=== PATIENT | female | born 1955 | race African-American/Black ===

== ENCOUNTER → 2017-05-13 12:35 | Outpatient (CLI) | payer MEDICAID, SELFPAY ==
[2017-05-13 13:48] LABS: Alanine Aminotransferase 16 U/L (12-78); Albumin Level 3.4 gm/dL (3.4-5.0); Albumin/Globulin Ratio 0.8 (1.1-1.8); Alkaline Phosphatase 110 U/L (46-116); Anion Gap 10.8 mEq/L (5-15); Aspartate Amino Transferase 11 U/L (15-37); Bilirubin,Total 0.4 mg/dL (0.2-1.0); Blood Urea Nitrogen 10 mg/dL (7-18); Calcium 8.7 mg/dL (8.5-10.1); Carbon Dioxide 31 mmol/L (21.0-32.0); Chloride 103 mmol/L (98-107); Chol/HDL Ratio 3.9 (1-3.5); Cholesterol 193 mg/dL (140-200); Creatinine,Serum 0.85 mg/dL (0.55-1.02); Estimated Glomerular Filt Rate > 60 ml/min (>60); GFR (African American) > 60 ML/MIN (>60); Globulin 4.2 gm/dl (1.3-3.2); Glucose 97 mg/dL (74-106); HDL Cholesterol 50 mg/dL (29-89); LDL Cholesterol 125 mg/dL (0-130); Potassium 3.8 mmoL/L (3.5-5.1); Sodium 141 mmol/L (136-145); Total Protein,Serum 7.6 gm/dL (6.4-8.2); Triglycerides 91 mg/dL (30-200); VLDL Cholesterol 18 mg/dL (0-40)
== END ==
PROVIDERS: PCP Internal Medicine Adolescent Medicine; Visit Provider Internal Medicine Adolescent Medicine
DX: E78.5 Hyperlipidemia, unspecified (principal)
CPT/HCPCS: 36415; 80053; 80061

== ENCOUNTER → 2017-09-26 09:55 | Outpatient (CLI) | payer MEDICAID, SELFPAY ==
[2017-09-26 11:29] LABS: Basophils % 0.6 % (0.1-2.0); Eosinophils # 0.2 K/mm3 (0.0-0.4); Eosinophils % 2.7 % (0.1-12.0); Hematocrit 37.1 % (37.0-47.0); Hemoglobin 11.5 g/dL (12.2-16.2); Lymphocytes # 2.1 K/mm3 (0.7-4.5); Mean Corpuscular Volume 90.2 fl (81-99); Mean Platelet Volume 7.6 fl (7.4-10.4); Monocytes # 0.3 K/mm3 (0.1-1.0); Monocytes % 3.6 % (1.7-9.3); Neutrophils # 4.6 K/mm3 (1.8-7.8); Neutrophils % 64.1 % (37.0-80.0); Platelet Count 395 K/mm3 (142-424); Red Blood Count 4.11 M/mm3 (4.20-5.40); Red Cell Distribution Width 12.9 % (11.5-17.5); White Blood Count 7.2 K/mm3 (4.8-10.8)
[2017-09-26 12:23] LABS: Alanine Aminotransferase 18 U/L (12-78); Albumin Level 3.2 gm/dL (3.4-5.0); Albumin/Globulin Ratio 0.7 (1.1-1.8); Alkaline Phosphatase 112 U/L (46-116); Anion Gap 8.6 mEq/L (5-15); Aspartate Amino Transferase 14 U/L (15-37); Bilirubin,Total 0.4 mg/dL (0.2-1.0); Blood Urea Nitrogen 11 mg/dL (7-18); Calcium 8.7 mg/dL (8.5-10.1); Carbon Dioxide 30 mmol/L (21.0-32.0); Chloride 106 mmol/L (98-107); Cholesterol 206 mg/dL (140-200); Creatinine,Serum 0.67 mg/dL (0.55-1.02); Estimated Glomerular Filt Rate 89 ml/min (>60); GFR (African American) 108 ML/MIN (>60); Globulin 4.3 gm/dl (1.3-3.2); Glucose 90 mg/dL (74-106); HDL Cholesterol 52 mg/dL (29-89); LDL Cholesterol 137 mg/dL (0-130); Potassium 3.6 mmoL/L (3.5-5.1); Sodium 141 mmol/L (136-145); Total Protein,Serum 7.5 gm/dL (6.4-8.2); Triglycerides 84 mg/dL (30-200); VLDL Cholesterol 17 mg/dL (0-40)
== END ==
PROVIDERS: PCP Nurse Practitioner Family; Referring Provider Nurse Practitioner Family; Visit Provider Nurse Practitioner Family
DX: Z00.00 Encounter for general adult medical examination without abnormal findings (principal); E78.5 Hyperlipidemia, unspecified; D72.829 Elevated white blood cell count, unspecified
CPT/HCPCS: 36415; 80053; 80061; 85025

== ENCOUNTER → 2018-01-16 10:14 | Outpatient (CLI) | payer MEDICAID, SELFPAY ==
[2018-01-16 10:36] LABS: Basophils % 0.4 % (0.1-2.0); Eosinophils # 0.3 K/mm3 (0.0-0.4); Eosinophils % 3.3 % (0.1-12.0); Hematocrit 38.1 % (37.0-47.0); Hemoglobin 12.1 g/dL (12.2-16.2); Lymphocytes # 2.7 K/mm3 (0.7-4.5); Lymphocytes % 30.7 K/mm3 (10-50); Mean Corpuscular HGB Conc 31.8 g/dL (31.8-35.4); Mean Corpuscular Hemoglobin 28.9 pg (27.0-31.2); Mean Platelet Volume 7.6 fl (7.4-10.4); Monocytes # 0.3 K/mm3 (0.1-1.0); Monocytes % 3.4 % (1.7-9.3); Neutrophils # 5.5 K/mm3 (1.8-7.8); Neutrophils % 62.1 % (37.0-80.0); Platelet Count 405 K/mm3 (142-424); Red Blood Count 4.18 M/mm3 (4.20-5.40); Red Cell Distribution Width 13.4 % (11.5-17.5); White Blood Count 8.9 K/mm3 (4.8-10.8)
[2018-01-16 12:16] LABS: Alanine Aminotransferase 23 U/L (12-78); Albumin Level 3.5 gm/dL (3.4-5.0); Albumin/Globulin Ratio 0.8 (1.1-1.8); Alkaline Phosphatase 120 U/L (46-116); Aspartate Amino Transferase 11 U/L (15-37); Bilirubin,Total 0.4 mg/dL (0.2-1.0); Blood Urea Nitrogen 9 mg/dL (7-18); Calcium 8.9 mg/dL (8.5-10.1); Carbon Dioxide 34 mmol/L (21.0-32.0); Chloride 104 mmol/L (98-107); Chol/HDL Ratio 3.9 (1-3.5); Cholesterol 236 mg/dL (140-200); Estimated Glomerular Filt Rate 85 ml/min (>60); GFR (African American) 103 ML/MIN (>60); Globulin 4.5 gm/dl (1.3-3.2); Glucose 94 mg/dL (74-106); HDL Cholesterol 60 mg/dL (29-89); LDL Cholesterol 155 mg/dL (0-130); Sodium 142 mmol/L (136-145); Triglycerides 104 mg/dL (30-200); VLDL Cholesterol 21 mg/dL (0-40)
[2018-01-20 05:20] LABS: Vitamin B12 525 pg/mL (232-1245)
== END ==
PROVIDERS: PCP Nurse Practitioner Family; Visit Provider Nurse Practitioner Family
DX: Z00.00 Encounter for general adult medical examination without abnormal findings (principal); E78.5 Hyperlipidemia, unspecified; E53.8 Deficiency of other specified B group vitamins
CPT/HCPCS: 36415; 80053; 80061; 82607; 85025

== ENCOUNTER 2018-03-25 15:00 | Outpatient (RCR) | payer MEDICAID, SELFPAY ==
--- NOTE | 2018-03-18 09:51 | HMH.PTOPEV ---
PT Outpatient Evaluation Rehab PT Outpatient Evaluation Start: 03/18/18 09:41 Freq: Status: Active Protocol: Document 03/18/18 09:41 AMBERLYLORNA (Rec: 03/18/18 09:51 LIANALATASHA [id number]) Electronically Signed By Deni Chu, PT 03/18/18 09:41 Outpatient Therapy Subjective History Subjective History This is the initial OP PT evaluation for Alessandra Santana. Pt is a 62 y/o female referred to PT for c/o L knee pain. Pt reports she fell 2 years ago onto L knee cap and cracked her knee . Pt rpeorts she has had pain in it ever since. Pt reports she has difficulty w/ transition from sit to stand. Pt also feels like her knee catches and gives out Chief Complaint Pain Catches/Locks Gives out/Unstable Symptom Type Ache Throb Sharp Dull Symptoms Relieved By Rest/Positioning Prescription Meds Symptoms Aggravated By Prone Current Functional Limitations Housework Recreation Activity Walking Stairs Symptom Description Intermittent Level of pain today (0-10) 0 Pain scale - at its best (0-10) 0 Pain scale - at its worst (0-10) 9 Hip/Knee Eval Gait Observation General Gait Pattern Observation Antalgic Gait Wide Based Gait Shuffling Step Assistive Device Assistive Devices Straight Cane MMT bilateral Hip Strength Reason Not Measured WFL Knee Extension Strength Grade 4 Good Knee Flexion Strength Grade 4 Good ROM Knee ROM Reason Not Measured Within Functional Limits Special Tests Knee Apley Compression Test Negative Left Negative Right Knee Medial-Lateral Grind Test Negative Left Negative Right Knee Valgus Stress Test Negative Left Negative Right Knee Varus Stress Test Negative Left Negative Right Knee Trevon Test Negative Left Negative Right Patellar Compression Test Positive Left Outpatient Therapy Assessment Impairments Problems/Impairmments Palpation Te
== END 2018-03-25 15:05 | disposition home or self-care (01) ==
LOC: PT 15:00
PROVIDERS: Visit Provider Nurse Practitioner Family
DX: M25.562 Pain in left knee (principal)
CPT/HCPCS: 97033; 97110; 97163

== ENCOUNTER → 2018-08-11 09:11 | Outpatient (CLI) | payer MEDICAID, SELFPAY ==
[2018-08-11 10:18] LABS: Basophils % 0.2 % (0.1-2.0); Eosinophils # 0.2 K/mm3 (0.0-0.4); Eosinophils % 1.8 % (0.1-12.0); Hematocrit 36.3 % (37.0-47.0); Lymphocytes # 2.5 K/mm3 (0.7-4.5); Lymphocytes % 28.4 % (10-50); Mean Corpuscular HGB Conc 33.2 g/dL (31.8-35.4); Mean Corpuscular Hemoglobin 28.9 pg (27.0-31.2); Mean Corpuscular Volume 87.1 fl (81-99); Mean Platelet Volume 7.3 fl (7.4-10.4); Monocytes # 0.3 K/mm3 (0.1-1.0); Monocytes % 3.2 % (1.7-9.3); Neutrophils # 5.8 K/mm3 (1.8-7.8); Neutrophils % 66.3 % (37.0-80.0); Platelet Count 381 K/mm3 (142-424); Red Blood Count 4.17 M/mm3 (4.20-5.40); Red Cell Distribution Width 13.2 % (11.5-17.5); White Blood Count 8.8 K/mm3 (4.8-10.8)
[2018-08-11 10:39] LABS: Alanine Aminotransferase 18 U/L (12-78); Albumin Level 3.6 gm/dL (3.4-5.0); Albumin/Globulin Ratio 0.8 (1.1-1.8); Alkaline Phosphatase 111 U/L (46-116); Anion Gap 13.9 mEq/L (5-15); Aspartate Amino Transferase 12 U/L (15-37); Bilirubin,Total 0.5 mg/dL (0.2-1.0); Blood Urea Nitrogen 11 mg/dL (7-18); Calcium 8.8 mg/dL (8.5-10.1); Carbon Dioxide 28 mmol/L (21.0-32.0); Chloride 104 mmol/L (98-107); Chol/HDL Ratio 3.7 (1-3.5); Cholesterol 224 mg/dL (140-200); Creatinine,Serum 0.77 mg/dL (0.55-1.02); Estimated Glomerular Filt Rate 76 ml/min (>60); GFR (African American) 92 ML/MIN (>60); Globulin 4.5 gm/dl (1.3-3.2); Glucose 94 mg/dL (74-106); HDL Cholesterol 61 mg/dL (29-89); LDL Cholesterol 146 mg/dL (0-130); Potassium 3.9 mmoL/L (3.5-5.1); Sodium 142 mmol/L (136-145); Thyroid Stimulating Hormone 2.05 uIU/ml (0.358-3.740); Total Protein,Serum 8.1 gm/dL (6.4-8.2); Triglycerides 85 mg/dL (30-200); VLDL Cholesterol 17 mg/dL (0-40)
[2018-08-11 15:10] LABS: Hemoglobin A1C 5.9 % (0.0-7.0)
[2018-08-12 11:35] LABS: Ferritin 113 ng/mL (8-388)
[2018-08-13 08:32] LABS: Iron 58 ug/dL (27-139); Iron Saturation 22 % (15-55); UIBC 209 ug/dL (118-369)
[2018-08-13 14:28] LABS: Folate 4.4 ng/mL (>3.0)
== END ==
PROVIDERS: Visit Provider Nurse Practitioner Family
DX: E78.5 Hyperlipidemia, unspecified (principal); E66.01 Morbid (severe) obesity due to excess calories; K59.00 Constipation, unspecified; R60.9 Edema, unspecified; M12.9 Arthropathy, unspecified; I87.2 Venous insufficiency (chronic) (peripheral)
CPT/HCPCS: 36415; 80053; 80061; 82728; 82746; 83036; 83540; 83550; 84443; 85025

== ENCOUNTER 2018-09-04 11:00 | Outpatient (RCR) | payer MEDICAID, SELFPAY ==
--- NOTE | 2018-08-14 09:38 | HMH.PTOPWND ---
Rehab Outpt Wound Evaluation Rehab OP Wound Evaluation Start: 08/14/18 09:15 Freq: Status: Active Protocol: Document 08/14/18 09:31 DMITRY (Rec: 08/14/18 09:37 PHORNE [id number]) Electronically Signed By Nishant Crain, PT 08/14/18 09:31 Subjective/History History History Pt is 63 yoaaf who presents with c/o left knee pain and benedicto LE swelling x > 3 yrs. She reports having a ground level fall in the mud, years ago which precipitated her edema. She reports pain in the left knee is worse with walking and transfers. She also reports tenderness to palpation throughout benedicto lower legs. She reports a hx of HL, OA, questionable prior patella fx, and umbilical hernia repair. Subjective Subjective Pt reports pain 3/10 in left knee at rest, 4/10 with ambulation. Lymphedema Eval Classification of Lymphedema Secondary Lymphedema Yes Stemmer's sign Stemmer's Sign no Stage of Lymphedema Lymphedema stages Stage I (Pitting edema, reduces w/ elevation, no fibrosis) Skin Changes Dry Skin Yes Redness Yes Pain Scale Pain Scale (0-10) 3 Affected Extremities Areas Affected by Lymphedema/Edema Right Lower Extremity Left Lower Extremity Manual Lymphatic Drainage Treatment Area MLD Treatment Area Right Lower Extremity Left Lower Extremity Wound Problems/Impairments Impairments Problems/Impairmments Palpation Tenderness Impaired Strength Impaired Endurance Impaired Transfers Impaired Gait Pattern Impaired Walking Increased Edema Lymphedema Present Subjective C/O Pain Impaired Self Care/Self Management Prognosis Rehab Potential Good Clinical Impression Consistent with Diagnosis Yes Short Term Goals Number of Weeks 4 Decreased Palpation Tenderness Yes: to min Decrease Subjective C/O Pain Yes: 2/10 Patient to Understand Lymphedema Yes Treatment and Exercis
== END 2018-09-04 11:15 | disposition home or self-care (01) ==
LOC: PT 11:00
PROVIDERS: Visit Provider Nurse Practitioner Family
DX: I87.2 Venous insufficiency (chronic) (peripheral) (principal); R60.0 Localized edema
CPT/HCPCS: 97140; 97162

== ENCOUNTER → 2018-10-01 09:06 | Outpatient (CLI) | payer MEDICAID, SELFPAY ==
--- NOTE | 2018-10-01 09:12 | XR_ITS ---
XR knee LT 4V HISTORY: Left knee pain ITS.REASON: 4 views weight bearing ORDERING PHYSICIAN: Nelda Campbell MD PATIENT AGE: 63 years COMPARISON: 10/20/2016 FINDINGS: There are severe osteoarthritic changes of the left knee involving all 3 compartments probably not significantly changed considering difference in technique. No fracture or dislocation. IMPRESSION: Severe osteoarthritis of left knee
== END ==
PROVIDERS: PCP Internal Medicine Adolescent Medicine; Visit Provider Orthopaedic Surgery
DX: M25.562 Pain in left knee (principal)
CPT/HCPCS: 73564

== ENCOUNTER → 2019-01-16 09:07 | Outpatient (CLI) | payer MEDICAID, SELFPAY ==
[2019-01-16 09:33] LABS: Basophils % 0.3 % (0.1-2.0); Eosinophils # 0.2 K/mm3 (0.0-0.4); Eosinophils % 2.3 % (0.1-12.0); Hemoglobin 12.1 g/dL (12.2-16.2); Lymphocytes # 2.5 K/mm3 (0.7-4.5); Lymphocytes % 25.6 % (10-50); Mean Corpuscular HGB Conc 31.9 g/dL (31.8-35.4); Mean Corpuscular Hemoglobin 29.3 pg (27.0-31.2); Mean Corpuscular Volume 91.9 fl (81-99); Mean Platelet Volume 8.4 fl (7.4-10.4); Monocytes # 0.3 K/mm3 (0.1-1.0); Monocytes % 3.5 % (1.7-9.3); Neutrophils # 6.7 K/mm3 (1.8-7.8); Neutrophils % 68.2 % (37.0-80.0); Platelet Count 437 K/mm3 (142-424); Red Blood Count 4.14 M/mm3 (4.20-5.40); White Blood Count 9.8 K/mm3 (4.8-10.8)
[2019-01-16 10:27] LABS: Alanine Aminotransferase 22 U/L (12-78); Albumin Level 3.4 gm/dL (3.4-5.0); Albumin/Globulin Ratio 0.8 (1.1-1.8); Alkaline Phosphatase 118 U/L (46-116); Anion Gap 11.9 mEq/L (5-15); Aspartate Amino Transferase 17 U/L (15-37); Bilirubin,Total 0.7 mg/dL (0.2-1.0); Blood Urea Nitrogen 13 mg/dL (7-18); Calcium 8.9 mg/dL (8.5-10.1); Carbon Dioxide 30 mmol/L (21.0-32.0); Chloride 102 mmol/L (98-107); Cholesterol 209 mg/dL (140-200); Estimated Glomerular Filt Rate 72 ml/min (>60); GFR (African American) 88 ML/MIN (>60); Globulin 4.4 gm/dl (1.3-3.2); Glucose 102 mg/dL (74-106); HDL Cholesterol 52 mg/dL (29-89); LDL Cholesterol 141 mg/dL (0-130); Potassium 3.9 mmoL/L (3.5-5.1); Sodium 140 mmol/L (136-145); Total Protein,Serum 7.8 gm/dL (6.4-8.2); Triglycerides 82 mg/dL (30-200); VLDL Cholesterol 16 mg/dL (0-40)
[2019-01-18 04:21] LABS: Vitamin D 25 Hydroxy 13.3 ng/mL (30.0-100.0)
== END ==
PROVIDERS: Visit Provider Nurse Practitioner Family
DX: E78.5 Hyperlipidemia, unspecified (principal); D64.9 Anemia, unspecified; E55.9 Vitamin D deficiency, unspecified
CPT/HCPCS: 36415; 80053; 80061; 82652; 85025

== ENCOUNTER → 2019-10-14 09:22 | Outpatient (CLI) | payer OTHER, SELFPAY ==
--- NOTE | 2019-10-14 09:49 | XR_ITS ---
PROCEDURE: XR KNEE LT 3V CLINICAL INDICATION: OSTEOARTHRITIS COMPARISON: KNEE3R KNEE-3 VIEWS-RT from 06/19/2014 KNEE3L KNEE-3 VIEWS-LT from 06/19/2014 KNEE3L KNEE-3 VIEWS-LT from 04/22/2015 KNEE3L KNEE-3 VIEWS-LT from 10/20/2016 FINDINGS: No fracture or dislocation. No lytic or blastic change. There is normal mineralization. There are severe tricompartmental osteoarthritic changes with mild lateral tibial subluxation Other findings:None. IMPRESSION: Severe tricompartmental osteoarthritis which may be slightly progressed from 10/20/2016 Dictated by: Shawn Jolly MD 10/14/2019 11:37 Electronically signed by Shawn Jolly MD in [place] 10/14/2019 11:37
--- NOTE | 2019-10-14 09:49 | XR_ITS ---
PROCEDURE: XR KNEE RT 3V CLINICAL INDICATION: OSTEOARTHRITIS COMPARISON: KNEE3R KNEE-3 VIEWS-RT from 06/19/2014 KNEE3L KNEE-3 VIEWS-LT from 06/19/2014 KNEE3L KNEE-3 VIEWS-LT from 04/22/2015 KNEE3L KNEE-3 VIEWS-LT from 10/20/2016 FINDINGS: There is severe osteoarthritis involving all 3 compartments with mild subluxation the tibia by 9 mm. No acute fracture or dislocation. IMPRESSION: Severe tricompartmental osteoarthritis which has shown some progression since 06/19/2014 Dictated by: Shawn Jolly MD 10/14/2019 11:34 Electronically signed by Shawn Jolly MD in [place] 10/14/2019 11:34
[2019-10-14 09:54] LABS: Basophils % 0.4 % (0.1-2.0); Eosinophils # 0.2 K/mm3 (0.0-0.4); Hematocrit 37.9 % (37.0-47.0); Hemoglobin 12.6 g/dL (12.2-16.2); Lymphocytes # 2.5 K/mm3 (0.7-4.5); Lymphocytes % 25.8 % (10-50); Mean Corpuscular HGB Conc 33.2 g/dL (31.8-35.4); Mean Corpuscular Hemoglobin 29.9 pg (27.0-31.2); Mean Corpuscular Volume 90.2 fl (81-99); Mean Platelet Volume 7.6 fl (7.4-10.4); Monocytes # 0.3 K/mm3 (0.1-1.0); Monocytes % 3.4 % (1.7-9.3); Neutrophils # 6.5 K/mm3 (1.8-7.8); Neutrophils % 68.4 % (37.0-80.0); Platelet Count 420 K/mm3 (142-424); Red Cell Distribution Width 13.3 % (11.5-17.5); White Blood Count 9.5 K/mm3 (4.8-10.8)
[2019-10-14 10:31] LABS: Erythrocyte Sedimentation Rate 40 mm/hr (0-30)
[2019-10-14 10:44] LABS: Alanine Aminotransferase 8 U/L (12-78); Albumin Level 4.4 g/dl (3.5-5.0); Albumin/Globulin Ratio 1.1 (1.1-1.8); Alkaline Phosphatase 119 U/L (38-126); Aspartate Amino Transferase 16 U/L (14-36); Bilirubin,Total 0.6 mg/dl (0.2-1.3); Blood Urea Nitrogen 15 mg/dl (7-17); Calcium 9.7 mg/dl (8.4-10.2); Carbon Dioxide 33 mmol/L (22.0-30.0); Chloride 98 mmol/L (98-107); Chol/HDL Ratio 3.4 (1-3.5); Cholesterol 217 mg/dl (140-200); Estimated Glomerular Filt Rate 72 ml/min (>60); GFR (African American) 87 ML/MIN (>60); Globulin 3.9 g/dL (1.3-3.2); Glucose 112 mg/dl (74-100); HDL Cholesterol 64 mg/dl (40-60); Sodium 140 mmol/L (136-145); Total Protein,Serum 8.3 g/dl (6.3-8.2); Triglycerides 101 mg/dl (30-150); VLDL Cholesterol 20 mg/dL (0-40)
[2019-10-14 10:50] LABS: Anion Gap 13.2 mEq/L (5-15); Potassium 4.2 mmoL/L (3.5-5.1)
[2019-10-14 10:55] LABS: Direct LDL Cholesterol 146.97 mg/dL (100-129)
== END ==
PROVIDERS: Visit Provider Internal Medicine Adolescent Medicine
DX: M17.0 Bilateral primary osteoarthritis of knee (principal); E78.5 Hyperlipidemia, unspecified; D72.829 Elevated white blood cell count, unspecified
CPT/HCPCS: 36415; 73562; 80053; 80061; 85025; 85651

== ENCOUNTER 2020-11-08 10:49 | Emergency (ER) | payer OTHER, SELFPAY ==
[2020-11-08 10:50] VITALS: BP 140/94; PULSE 87; RESP 18; TEMP 36.6; O2SAT 99; BMI 50.0
--- NOTE | 2020-11-08 11:23 | HMH.EDUTC ---
[facility] [place] Clinical Impression: Corns and callosities Disposition: Home, Self-Care Condition on Discharge: Good Instructions: Calluses and Corns, DI for Calluses and Corns Additional Instructions: Make sure to wear loose shoes Follow up with Podiatry as scheduled Make sure that shoes are well padded this may help with pain and discomfort Follow up with your Family Doctor if needed there is over the counter corn pads that may help with pain and discomfort associated with corns and calluses Soak your feet in a warm bath with Epsom salts. After the soak, pat your feet dry with a clean towel and moisturize with a hydrating lotion or cocoa butter. Continue this process daily until your corn has softened. Referrals: Amari Sanchez MD [Primary Care Provider] - As needed Catalina Anand DPM [Staff Physician] - 12/26/20 9:00 am Time of Disposition: 11:33 Medical Decision Making - Jeremy Inquiry Pt receiving controlled substance: No Jeremy was queried for this patient: No Vital Signs: 11/08/20 10:50 11/08/20 11:53 Temperature 97.8 F 97.8 F Temperature Source Oral Pulse Rate 87 Pulse Rate [Right Brachial] 87 Respiratory Rate 18 18 Blood Pressure 140/94 H Blood Pressure [Left Arm] 140/94 H Blood Pressure Mean [Left Arm] 109 Blood Pressure Source [Left Arm] Automatic Cuff Blood Pressure Position [Left Arm] Sitting 02 Sat by Pulse Oximetry 99 Oxygen Delivery Method Room Air - Physician Consults Physician Consulted: Dr Anand Time: 11:27 Reason -: Podiatry Eval/Care Comment/Response: Spoke with Dalia from Dr Anand office and she advised that patient has appointment on Dec 26 at 1245 Medical Decision Narrative: Patient denies redness or any signs of infection Patient has appointment with Podiatry Patient educated on OTC pads that may help with the discomfort from wearing shoes until she can see Podiatry or to follow up with her PCP if symptoms worsen and they may be able to get her into Podiatry sooner [facility] [place] - General Stated complaint: corns on feet Time Seen by Provider: 11/08/20 11:24 Mode of Arrival: Ambulatory Source of Information: Patient Limitations: No Limitations Description of Symptoms (Recalled from Triage Doc. by RN): PATIENT C/O CORNS TO FEET X 4 DAYS HEENT Symptoms (Recalled from RN notes): No Resp Symptoms (Recalled from RN notes): No Skin Symptoms (Recalled from RN notes): Yes MS Symptoms (Recalled from RN notes): No Functional Status (Recalled from RN notes): WNL - History of Present Illness Provider Complaint: Patient states that her feet are wide and she had wore tight shoes and now she has corns on the sides of her little toes and feels like the bottom of her feet are callused and hurts at times when she walks on them State that she has tried the over the counter corn medication but it hasnt worked so she came in here to get seen - Related Data Home Medications Medication Instructions Recorded Confirmed atorvastatin 40 mg tablet 40 mg PO DAILY 12/16/18 12/16/18 furosemide 80 mg tablet 80 mg PO DAILY 12/16/18 12/16/18 meloxicam 15 mg tablet 15 mg PO DAILY 12/16/18 12/16/18 polyethylene glycol 3350 8.5 gram 8.5 g PO DAILY PRN 12/16/18 12/16/18 oral powder packet potassium chloride 20 mEq oral 20 meq PO DAILY 12/16/18 12/16/18 packet ranitidine HCl 150 mg effervescent 150 mg PO DAILY 12/16/18 tablet trolamine salicylate 10 % topical % TOPICAL ml 12/16/18 12/16/18 spray Allergies Allergy/AdvReac Type Severity Reaction Status Date / Time No Known Allergies Allergy Verified 12/16/18 10:09 - Worker's Comp Is this a Worker's Comp case?: No [facility] History - Hepatitis A Screen Drug use history?: No High risk sexual behaviors?: No History of sexually transmitted infection?: No Currently employed?: No Childcare worker?: No Do you have indoor plumbing?: Yes Do you have electricity?: Yes Attestation statement:: This patient has been screened for He
[2020-11-08 11:53] VITALS: BP 140/94; PULSE 87; RESP 18; TEMP 36.6; O2SAT 99
== END 2020-11-08 11:55 | disposition home or self-care (01) ==
PROVIDERS: Emergency Provider Nurse Practitioner; PCP Family Medicine
DX: L84 Corns and callosities (principal)

== ENCOUNTER → 2020-12-07 10:41 | Outpatient (CLI) | payer MEDICARE, OTHER, SELFPAY ==
--- NOTE | 2020-12-07 10:54 | XR_ITS ---
PROCEDURE: XR KNEE RT 3V CLINICAL INDICATION: knee pain COMPARISON: CR KNEE3L KNEE-3 VIEWS-LT from 04/22/2015 CR KNEE3L KNEE-3 VIEWS-LT from 10/20/2016 CR XR KNEE LT 3V from 10/14/2019 CR XR KNEE RT 3V from 10/14/2019 FINDINGS: There are severe osteoarthritic changes of the right knee which is most extensive at the medial compartment and patellofemoral joint with decrease in joint space, osteosclerosis, and osteophyte formation. Subchondral cystic changes are present at the medial tibial plateau and at the medial femoral condyle. Probably not significantly changed compared to the previous exam. No fracture or dislocation. Other findings:None. IMPRESSION: Severe osteoarthritis of the right knee Dictated by: Shawn Jolly MD 12/07/2020 11:31 Shawn Jolly MD in [place] 12/07/2020 11:31
--- NOTE | 2020-12-07 10:54 | XR_ITS ---
PROCEDURE: XR KNEE LT 3V CLINICAL INDICATION: knee pain COMPARISON: CR KNEE3L KNEE-3 VIEWS-LT from 04/22/2015 CR KNEE3L KNEE-3 VIEWS-LT from 10/20/2016 CR XR KNEE LT 3V from 10/14/2019 CR XR KNEE RT 3V from 10/14/2019 FINDINGS: There are severe tricompartmental osteoarthritic changes with loss of joint space, osteosclerosis, and osteophyte formation. Subchondral cystic changes are present involving the medial femoral condyle and medial tibial plateau and appears slightly more extensive at the medial tibial plateau region. Prominent spurs are present along the patella superiorly and inferiorly. There is mild tibial subluxation laterally by approximately 5 mm. No acute fracture or dislocation. Other findings:None. IMPRESSION: Severe tricompartmental osteoarthritis of the left knee which may be slightly worse. Dictated by: Shawn Jolly MD 12/07/2020 11:29 Shawn Jolly MD in [place] 12/07/2020 11:29
[2020-12-07 14:28] LABS: Basophils # 0.1 K/mm3 (0-0.2); Basophils % 0.6 % (0.1-2.0); Eosinophils # 0.2 K/mm3 (0.0-0.4); Eosinophils % 1.7 % (0.1-12.0); Hematocrit 35.7 % (37.0-47.0); Lymphocytes # 2.6 K/mm3 (0.7-4.5); Mean Corpuscular HGB Conc 33.7 g/dL (31.8-35.4); Mean Corpuscular Volume 89.1 fl (81-99); Mean Platelet Volume 8.8 fl (7.4-10.4); Monocytes # 0.3 K/mm3 (0.1-1.0); Monocytes % 3.7 % (1.7-9.3); Neutrophils # 5.9 K/mm3 (1.8-7.8); Platelet Count 444 K/mm3 (142-424); Red Cell Distribution Width 13.5 % (11.5-17.5)
[2020-12-07 14:32] LABS: Alanine Aminotransferase 14 U/L (12-78); Albumin/Globulin Ratio 1.1 (1.1-1.8); Alkaline Phosphatase 101 U/L (38-126); Anion Gap 13.2 mEq/L (5-15); Aspartate Amino Transferase 20 U/L (14-36); Bilirubin,Total 0.6 mg/dl (0.2-1.3); Blood Urea Nitrogen 13 mg/dl (7-17); Calcium 8.9 mg/dl (8.4-10.2); Carbon Dioxide 29 mmol/L (22.0-30.0); Chloride 100 mmol/L (98-107); Cholesterol 218 mg/dl (140-200); Estimated Glomerular Filt Rate 84 ml/min (>60); GFR (African American) 102 ML/MIN (>60); Globulin 3.7 g/dL (1.3-3.2); Glucose 87 mg/dl (74-100); HDL Cholesterol 54 mg/dl (40-60); Potassium 4.2 mmoL/L (3.5-5.1); Sodium 138 mmol/L (136-145); Total Protein,Serum 7.7 g/dl (6.3-8.2); Triglycerides 87 mg/dl (30-150); VLDL Cholesterol 17 mg/dL (0-40)
[2020-12-07 14:42] LABS: Direct LDL Cholesterol 127.47 mg/dL (100-129)
[2020-12-07 14:48] LABS: T4 (Thyroxine) 9.8 ug/dl (5.53-11.0)
[2020-12-07 14:49] LABS: 25-OH Vitamin D, Total 22.2 ng/mL (30-100)
[2020-12-07 14:53] LABS: Hemoglobin A1C 5.5 % (4.0-6.0)
[2020-12-07 15:02] LABS: Thyroid Stimulating Hormone 2.49 uIU/mL (0.465-4.68)
== END ==
PROVIDERS: PCP Emergency Medicine; Visit Provider Nurse Practitioner Family
DX: M19.90 Unspecified osteoarthritis, unspecified site (principal); G89.29 Other chronic pain; M25.562 Pain in left knee; Z00.00 Encounter for general adult medical examination without abnormal findings; R73.03 Prediabetes; E55.9 Vitamin D deficiency, unspecified; Z79.899 Other long term (current) drug therapy
CPT/HCPCS: 73562; 80053; 80061; 82306; 83036; 84436; 84443; 85025

== ENCOUNTER 2021-01-14 09:23 | Emergency (ER) | payer MEDICARE, OTHER, SELFPAY ==
[2021-01-14 09:31] VITALS: PULSE 61; RESP 19; TEMP 36.9; O2SAT 97; BMI 53.2
[2021-01-14 09:44] VITALS: BP 131/78; PULSE 61; RESP 19; TEMP 36.9
--- NOTE | 2021-01-14 10:01 | HMH.EDUTC ---
[facility] [place] Clinical Impression: Exposure to COVID-19 virus Disposition: Home, Self-Care Condition on Discharge: Good Instructions: DI for COVID-19 (Suspected or Confirmed ), Preventing the Spread of Coronavirus Discharge Instructions Additional Instructions: Drink plenty of fluids. Take tylenol for pain or fever. Return if you begin to have difficulty breathing. Follow up with your regular doctor. GO TO THE ER FOR ANY WORSENING SYMPTOMS Quarantine until you know the results of your covid-19 test. If it is positive, the health department should call you and give you further instructions about your length of Quarantine and other things. Notify your school or workplace of your results and follow their instructions regarding return to work/school. Referrals: Provider,Referral, [Primary Care Provider] - Time of Disposition: 10:02 Medical Decision Making - Medical Records Medical records reviewed: No: I reviewed the patient's medical records. - Jeremy Inquiry Pt receiving controlled substance: No Vital Signs: 01/14/21 09:31 01/14/21 09:44 Temperature 98.5 F 98.5 F Temperature Source Oral Pulse Rate 61 Pulse Rate [Left] 61 Respiratory Rate 19 19 Blood Pressure 131/78 02 Sat by Pulse Oximetry 97 [facility] [place] - General Stated complaint: covid test Time Seen by Provider: 01/14/21 09:40 Mode of Arrival: Ambulatory Source of Information: Patient Limitations: No Limitations Description of Symptoms (Recalled from Triage Doc. by RN): covid test. asymptomatic. no exposure. HEENT Symptoms (Recalled from RN notes): No Resp Symptoms (Recalled from RN notes): No Skin Symptoms (Recalled from RN notes): No MS Symptoms (Recalled from RN notes): No Functional Status (Recalled from RN notes): na - History of Present Illness Provider Complaint: She was exposed to covid-19 around 5 days ago. She denies any symptoms so far. - Related Data Home Medications Medication Instructions Recorded Confirmed atorvastatin 40 mg tablet 40 mg PO DAILY 12/16/18 01/12/21 furosemide 80 mg tablet 80 mg PO DAILY 12/16/18 01/12/21 meloxicam 15 mg tablet 15 mg PO DAILY 12/16/18 01/12/21 polyethylene glycol 3350 8.5 gram 8.5 g PO DAILY PRN 12/16/18 01/12/21 oral powder packet potassium chloride 20 mEq oral 20 meq PO DAILY 12/16/18 01/12/21 packet ranitidine HCl 150 mg effervescent 150 mg PO DAILY 12/16/18 01/12/21 tablet Diclofenac Sodium [Voltaren 2 g TOPICAL QID 01/12/21 01/12/21 Arthritis Pain] Ergocalciferol (Vitamin D2) 50,000 unit PO QWEEK 01/12/21 01/12/21 [Drisdol] Allergies Allergy/AdvReac Type Severity Reaction Status Date / Time No Known Allergies Allergy Verified 01/12/21 10:47 - Worker's Comp Is this a Worker's Comp case?: No [facility] History - Hepatitis A Screen Drug use history?: No High risk sexual behaviors?: No History of sexually transmitted infection?: No Currently employed?: No Childcare worker?: No Do you have indoor plumbing?: Yes Do you have electricity?: Yes Attestation statement:: This patient has been screened for Hepatitis A risk factors. I have reviewed the patient's past medical history: Yes Medical History: Denies:: Cancer, Diabetes Mellitus Type 1, Diabetes Mellitus Type 2, Internal Pacemaker, MRSA Other Medical History: Reports: Arthritis Other Surgeries: Yes: Hernia Repair. No: Pacemaker Amputation: No Fractures: No Comment: umbilical hernia repair - Social History Smoking Status: Former smoker Alcohol Intake: never Substance Use Type: denies use Occupational Status: disabled Housing: house Family Hx:: No significant family history Comment: Dementia, obesity. ROS Obtained: Yes All systems reviewed & no additional complaints - Constitutional Constitutional: Reports system reviewed and no additional complaints, except as docu - Eyes Eyes: Reports system reviewed and no additional complaints, except as docu - ENT Ears, Nose,
== END 2021-01-14 10:10 | disposition home or self-care (01) ==
PROVIDERS: Emergency Provider Nurse Practitioner Family
DX: Z20.822 Contact with and (suspected) exposure to COVID-19 (principal); M19.90 Unspecified osteoarthritis, unspecified site; E78.5 Hyperlipidemia, unspecified
CPT/HCPCS: G0463; 99202; C9803; U0003; U0005

== ENCOUNTER 2021-01-17 07:59 | Day surgery (SDC) | payer MEDICARE, OTHER, SELFPAY ==
[2021-01-12 10:41] VITALS: BMI 58.1
[2021-01-17] VITALS (8 sets, daily range): BP systolic 147–169; BP diastolic 78–86; PULSE 61–63; RESP 18–20; TEMP 36.2–36.3; O2SAT 100
== END 2021-01-17 11:39 | disposition home or self-care (01) ==
LOC: OR 08:03
PROVIDERS: PCP Nurse Practitioner Family; Visit Provider Ophthalmology
DX: H25.811 Combined forms of age-related cataract, right eye (principal); H21.81 Floppy iris syndrome; H53.149 Visual discomfort, unspecified; E66.9 Obesity, unspecified; M19.90 Unspecified osteoarthritis, unspecified site; E78.5 Hyperlipidemia, unspecified; Z79.899 Other long term (current) drug therapy
CPT/HCPCS: 66982; V2632

== ENCOUNTER → 2021-03-27 14:51 | Outpatient (CLI) | payer MEDICARE, OTHER, SELFPAY ==
[2021-03-27 15:51] LABS: Basophils % 0.3 % (0.1-2.0); Eosinophils # 0.1 K/mm3 (0.0-0.4); Eosinophils % 1.4 % (0.1-12.0); Hematocrit 36.4 % (37.0-47.0); Hemoglobin 11.8 g/dL (12.2-16.2); Lymphocytes # 2.3 K/mm3 (0.7-4.5); Lymphocytes % 28.9 % (10-50); Mean Corpuscular HGB Conc 32.6 g/dL (31.8-35.4); Mean Corpuscular Hemoglobin 29.6 pg (27.0-31.2); Mean Corpuscular Volume 90.8 fl (81-99); Mean Platelet Volume 8.8 fl (7.4-10.4); Monocytes # 0.3 K/mm3 (0.1-1.0); Neutrophils # 5.1 K/mm3 (1.8-7.8); Neutrophils % 65.4 % (37.0-80.0); Platelet Count 406 K/mm3 (142-424); Red Blood Count 4.01 M/mm3 (4.20-5.40); Red Cell Distribution Width 13.4 % (11.5-17.5); White Blood Count 7.8 K/mm3 (4.8-10.8)
[2021-03-27 16:47] LABS: Alanine Aminotransferase 4 U/L (12-78); Albumin Level 3.9 g/dl (3.5-5.0); Albumin/Globulin Ratio 1.2 (1.1-1.8); Alkaline Phosphatase 95 U/L (38-126); Anion Gap 11.3 mEq/L (5-15); Aspartate Amino Transferase 22 U/L (14-36); Bilirubin,Total 0.8 mg/dl (0.2-1.3); Blood Urea Nitrogen 8 mg/dl (7-17); Calcium 8.9 mg/dl (8.4-10.2); Carbon Dioxide 32 mmol/L (22.0-30.0); Chloride 100 mmol/L (98-107); Estimated Glomerular Filt Rate 84 ml/min (>60); GFR (African American) 102 ML/MIN (>60); Globulin 3.3 g/dL (1.3-3.2); Glucose 81 mg/dl (74-100); Potassium 4.3 mmoL/L (3.5-5.1); Sodium 139 mmol/L (136-145); Total Protein,Serum 7.2 g/dl (6.3-8.2)
== END ==
PROVIDERS: Visit Provider Nurse Practitioner Family
DX: R60.0 Localized edema (principal); Z20.822 Contact with and (suspected) exposure to COVID-19
CPT/HCPCS: 80053; 85025

== ENCOUNTER → 2022-02-20 11:26 | Outpatient (CLI) | payer MEDICARE, OTHER, SELFPAY ==
--- NOTE | 2022-02-20 11:35 | XR_ITS ---
FINAL REPORT CLINICAL HISTORY: PPRIMARY OSTEOARTHRITIS KNEE COMPARISON: 12/07/2020 FINDINGS: Left knee Three views were obtained. There is no acute fracture or dislocation. There is severe tri compartment degenerative change. No soft tissue abnormality is identified. IMPRESSION: Severe tri compartment degenerative change, not significantly changed since previous. Reviewed, Interpreted and Dictated by Karl Her III, MD Transcribed by Wilma Choi Authenticated and . [facility]
== END ==
PROVIDERS: PCP Nurse Practitioner Family; Visit Provider Nurse Practitioner Family
DX: M17.12 Unilateral primary osteoarthritis, left knee (principal)
CPT/HCPCS: 73562